=== PATIENT | male | born 1995 | race Caucasian/White ===

== ENCOUNTER 2017-10-29 09:36 | Emergency (ER) | payer OTHER ==
[~2017-10-29] VITALS: Ht 170.2 cm; Wt 110.2 kg
[2017-10-29 10:17] LABS: ABSOLUTE BASOPHILS 0.1 thou/uL (0.0-0.2); ABSOLUTE EOSINOPHILS 0.1 thou/uL (0.0-0.7); ABSOLUTE LYMPHOCYTES 2.4 thou/uL (0.8-5.3); ABSOLUTE MONOCYTES 0.7 thou/uL (0.0-1.2); ABSOLUTE NEUTROPHILS 8.3 thou/uL (1.6-8.1); BASOPHILS 0.4 %; EOSINOPHILS 0.6 %; HEMATOCRIT 44.8 % (42.0-52.0); LYMPHOCYTES 20.6 %; MCH 28.5 pg (26.0-34.0); MCHC 33.4 g/dL (28.0-37.0); MCV 85.4 fL (80.0-100.0); MONOCYTES 6.3 %; MPV 10.5 fl. (7.2-11.1); NUCLEATED RBCS 0 /100WBC; PLATELET COUNT* 187 thou/uL (150-400); POLYS 72.1 %; RBC 5.24 mil/uL (4.50-6.00); RDW-CV 13.7 % (10.5-14.5); WBC 11.5 thou/uL (4.0-11.0)
[2017-10-29 10:22] LABS: CALCIUM 9.3 mg/dL (8.5-10.1); CREATININE 1.2 mg/dL (0.6-1.3); POTASSIUM 3.9 mmol/L (3.5-5.1)
[2017-10-29 10:25] LABS: APTT 28.4 Seconds (25.0-31.3); INR 1.1; PROTIME 10.5 Seconds (9.20-11.50)
[2017-10-29 10:26] LABS: ALBUMIN 4.6 g/dL (3.4-5.0); TOTAL BILIRUBIN 0.8 mg/dL (<0.1-1.0); TOTAL PROTEIN 8.1 g/dL (6.4-8.2)
[2017-10-29 11:45] LABS: URINE BILIRUBIN NEGATIVE (Negative); URINE BLOOD NEGATIVE (Negative); URINE CLARITY CLEAR; URINE COLOR YELLOW; URINE GLUCOSE-RANDOM NEGATIVE (Negative); URINE KETONES NEGATIVE (Negative); URINE LEUKOCYTES NEGATIVE (Negative); URINE NITRITE NEGATIVE (Negative); URINE PROTEIN NEGATIVE (Negative); URINE SPECIFIC GRAVITY <= 1.005 (1.005-1.030); URINE UROBILINOGEN 0.2 E.U./dl (0.2-1.0)
[2017-10-29 11:52] LABS: AMP/METHAMP Negative (Negative); BARBITURATES Negative (Negative); BENZODIAZEPINES Negative (Negative); COCAINE POSITIVE (Negative); METHADONE Negative (Negative); OPIATES Negative (Negative); PCP Negative (Negative); THC Negative (Negative)
[2017-10-29 12:32] VITALS: BP 129/69
--- NOTE | 2017-10-29 15:28 | EKG ---
[place] [address] ELECTROCARDIOGRAM REPORT Name: ORIN NUR Room: [facility]#: [id number] Admission: 10/29/17 Attend Phys: Discharge: Date of : [birth year] Report #: [id number] THIS REPORT FOR: //name// [facility] ED Test Date: 2017-10-29 Test Time: 11:32:02 Pat Name: ORIN NUR Department: Room: Gender: M System Operator: : 1995 Requested By: Danielle Peres Order Number: [id number] MD: Giancarlo Devlin Measurements Intervals [place] Rate: 98 P: 71 OR: 122 QRS: 2 QRSD: 95 T: 22 QT: 335 QTc: 428 Interpretive Statements Sinus rhythm ST elev, probable normal early repol pattern No previous ECG available for comparison Electronically Signed On 10-29-2017 15:28:22 CDT by Giancarlo Devlin [email or web address] <ELECTRONICALLY SIGNED> By: Giancarlo Devlin MD, [facility] 10/29/17 1528 1132 1132 Giancarlo Devlin MD, FAC /EPI
== END 2017-10-29 12:33 | disposition home or self-care (01) ==
LOC: M.ERS 09:36
PROVIDERS: Physician Assistant
DX: T17.228A Food in pharynx causing other injury, initial encounter (principal); X58.XXXA Exposure to other specified factors, initial encounter; Y93.89 Activity, other specified; Y92.89 Other specified places as the place of occurrence of the external cause; Y99.8 Other external cause status